=== PATIENT | female | born 1950 | race Caucasian/White ===

== ENCOUNTER 2017-10-21 21:06 | Emergency (ER) | payer MEDICARE, OTHER ==
[~2017-10-21] VITALS: Ht 157.5 cm; Wt 68.2 kg
[2017-10-21] MEDS ORDERED: PANT40TA25 PO (21:29)
[2017-10-21] MEDS ORDERED: FISH1 PO (21:29)
[2017-10-21] MEDS ORDERED: APIX2.5T PO (21:29)
[2017-10-21] MEDS ORDERED: COLC0.6T67 PO (21:29)
[2017-10-21] MEDS ORDERED: LOSA50TA37 PO (21:29)
[2017-10-21] MEDS ORDERED: CALC-877 PO (21:29)
[2017-10-21] MEDS ORDERED: ISOS10TA16 PO (21:29)
[2017-10-21] MEDS ORDERED: ASPI81 PO (21:29)
[2017-10-21] MEDS ORDERED: DEXAMETHASONE 4 MG TABLET PO ONE (21:45)
[2017-10-21 22:35] VITALS: BP 135/88
== END 2017-10-21 22:37 | disposition home or self-care (01) ==
LOC: EMS 21:09
DX: R07.0 Pain in throat (principal); K21.9 Gastro-esophageal reflux disease without esophagitis; I10 Essential (primary) hypertension; I48.91 Unspecified atrial fibrillation; Z79.82 Long term (current) use of aspirin
CPT/HCPCS: 93005; 99283; J8540